=== PATIENT | male | born 1955 | race Caucasian/White ===

== ENCOUNTER → 2019-07-06 07:51 | Outpatient (CLI) | payer OTHER, SELFPAY ==
--- NOTE | 2019-07-06 | DI.US.S_ITS ---
PROCEDURE: US ABD AORTA ANEURYSM SCREEN INDICATIONS: AAA SCREEN TECHNIQUE: Real time scanning was performed of the aorta and iliac arteries, with image documentation. COMPARISON: None. FINDINGS: Aorta: Proximal aortic diameter measures 2.0 cm. Mid-aorta measures 1.7 cm. Distal aortic diameter is 1.7 cm. Iliac arteries: Right common iliac artery measures 0.9 cm. Left common iliac artery measures 0.8 cm. IMPRESSION: No aneurysm identified Dictated by: Thang Lin M.D. on 07/06/2019 at 12:28 Approved by: Thang Lin M.D. on 07/06/2019 at 12:28
== END ==
PROVIDERS: PCP Student in an Organized Health Care Education/Training Program; Visit Provider Student in an Organized Health Care Education/Training Program
DX: Z13.6 Encounter for screening for cardiovascular disorders (principal)
CPT/HCPCS: 76706

== ENCOUNTER → 2021-11-07 07:23 | Outpatient (CLI) | payer OTHER, SELFPAY ==
--- NOTE | 2021-11-07 | DI.US.S_ITS ---
PROCEDURE: US EXTREMITY NONVASC LOWER LT INDICATIONS: LEFT ANTERIOR THIGH LUMPS X 3 TECHNIQUE: Real-time scanning was performed of the left thigh lumps , with image documentation. COMPARISON: None. FINDINGS: In all three areas of palpable abnormality, there are defined ovoid masses isoechoic to surrounding subcutaneous tissue ranging in size from 1.1 cm to 3.4 cm. There is no vascularity within any of these structures. Each demonstrates increased through transmission and no posterior shadowing or infiltration of the deep fascial surface. IMPRESSION: 1. Three lipomas in the subcutaneous layer ranging in size from 1.1 cm to 3.4 cm. Dictated by: Joanne Card M.D. on 11/07/2021 at 10:14 Approved by: Joanne Card M.D. on 11/07/2021 at 10:16
--- NOTE | 2021-11-07 | DI.US.S_ITS ---
PROCEDURE: US ABDOMEN LIMITED INDICATIONS: ANTERIOR ABDOMINAL WALL LUMP TECHNIQUE: Real-time focused scanning was performed of the area of concern, with image documentation. COMPARISON: None. FINDINGS: In the area of palpable abnormality along the anterior inferior rib margins, there is a defined, but unencapsulated mildly hyperechoic mass in the subcutaneous tissues measuring 1.9 x 0.8 by 2.6 cm. It demonstrates increased through transmission and no vascularity. There is indentation without infiltration of the underlying fascial layer. IMPRESSION: 1. 2.6 cm lipoma in the area of palpable abnormality. Dictated by: Joanne Card M.D. on 11/07/2021 at 10:13 Approved by: Joanne Card M.D. on 11/07/2021 at 10:14
== END ==
PROVIDERS: PCP Student in an Organized Health Care Education/Training Program; Referring Provider Student in an Organized Health Care Education/Training Program; Visit Provider Student in an Organized Health Care Education/Training Program
DX: D17.1 Benign lipomatous neoplasm of skin and subcutaneous tissue of trunk (principal)
CPT/HCPCS: 76705; 76882

== ENCOUNTER → 2023-01-28 09:13 | Outpatient (CLI) | payer MEDICARE, SELFPAY ==
--- NOTE | 2023-01-28 09:21 | DI.RAD.S_ITS ---
4PROCEDURE: XR THORACIC SPINE 3V INDICATIONS: BACK PAIN TECHNIQUE: 3 views of the thoracic spine were acquired. COMPARISON: None. FINDINGS: Bones: No fractures or dislocations. No suspicious bony lesions. 12 pairs of ribs are noted, and appear intact where visualized. Mild midthoracic disc height loss. Soft tissues: No paravertebral stripe thickening. IMPRESSION: Mild midthoracic disc height loss. Dictated by: Corbin Arnold M.D. on 01/28/2023 at 13:26 Approved by: Corbin Arnold M.D. on 01/28/2023 at 13:26
== END ==
PROVIDERS: PCP Student in an Organized Health Care Education/Training Program; Referring Provider Student in an Organized Health Care Education/Training Program; Visit Provider Student in an Organized Health Care Education/Training Program
DX: M54.6 Pain in thoracic spine (principal)
CPT/HCPCS: 72072